=== PATIENT | female | born 1995 | race African-American/Black ===

== ENCOUNTER 2017-01-24 08:21 | Emergency (ER) | payer BC ==
[~2017-01-24] VITALS: Ht 170.2 cm; Wt 48.0 kg
[2017-01-24 09:57] LABS: CLARITY URINE CLEAR (CLEAR); COLOR URINE YELLOW (YELLOW); GLUCOSE URINE NEGATIVE (NEGATIVE); KETONES URINE NEGATIVE (NEGATIVE); LEUKOCYTE ESTERASE URINE NEGATIVE (NEGATIVE); NITRITE URINE NEGATIVE (NEGATIVE); OCCULT BLOOD URINE NEGATIVE (NEGATIVE); PROTEIN URINE TRACE (NEGATIVE); SPECIFIC GRAVITY URINE 1.029 (1.005-1.030)
[2017-01-24] MEDS ORDERED: ACETAMINOPHEN 500MG TABLET PO ONE (12:00)
[2017-01-24] MEDS ORDERED: ONDANSETRON 4MG ODT PO ONE (12:00)
[2017-01-24 12:35] VITALS: BP 114/69
== END 2017-01-24 12:38 | disposition home or self-care (01) ==
LOC: ER 08:29
DX: J06.9 Acute upper respiratory infection, unspecified (principal); N39.0 Urinary tract infection, site not specified; R11.2 Nausea with vomiting, unspecified
CPT/HCPCS: 81001; 81025; 87070; 87430; 99284; Q0162

== ENCOUNTER → 2017-06-06 | Outpatient (CLI) | payer BC ==
[2017-06-06 09:01] LABS: CLARITY URINE CLOUDY (CLEAR); COLOR URINE YELLOW (YELLOW); KETONES URINE NEGATIVE (NEGATIVE); LEUKOCYTE ESTERASE URINE 2+ (NEGATIVE); NITRITE URINE NEGATIVE (NEGATIVE); OCCULT BLOOD URINE NEGATIVE (NEGATIVE); PH URINE 5.5 (4.5-8.0); PROTEIN URINE NEGATIVE (NEGATIVE); SPECIFIC GRAVITY URINE 1.021 (1.005-1.030); UROBILINOGEN URINE 0.2 E.U./dL (0.2-1.0)
[2017-06-06 09:07] LABS: BASOPHILS % 0.3 % (0.0-2.0); EOSINOPHILS % 2.4 % (0.0-5.0); HEMATOCRIT. 40.5 % (36.0-48.0); HEMOGLOBIN. 13.4 g/dL (12.0-16.0); LYMPHOCYTES % 41.8 % (20.0-50.0); MEAN CORPUSCULAR HEMOGLOBIN 29.2 pg (28.0-32.0); MEAN CORPUSCULAR VOLUME 87.9 fL (81.0-99.0); MEAN PLATELET VOLUME 8.3 fl (7.4-10.4); MONOCYTES % 5.6 % (2.0-8.0); NEUTROPHILS % 49.9 % (40.0-76.0); PLATELET 263 x1000/uL (130-400); RED CELL DISTRIBUTION WIDTH 13.6 % (11.6-14.6)
[2017-06-06 09:22] LABS: CHLORIDE 104 mEq/L (98-107); HDL CHOLESTEROL 65 mg/dL (40-59); LDL CHOLESTEROL 90 mg/dL (5-100); TOTAL IRON BINDING CAPACITY 419 ug/dL (250-450)
[2017-06-06 09:39] LABS: FOLIC ACID (FOLATE) SERUM >20 ng/mL ng/mL (>5.38); VITAMIN B12 SERUM 377 pg/mL (211-911)
[2017-06-08 08:15] LABS: CHLAMYDIA TRACHOMATIS NAA Negative (Negative); NEISSERIA GONORRHOEAE NAA Negative (Negative)
== END | disposition home or self-care (01) ==
LOC: LAB 06:41
PROVIDERS: ATTEND Internal Medicine Geriatric Medicine
DX: Z00.01 Encounter for general adult medical examination with abnormal findings (principal); N39.0 Urinary tract infection, site not specified
CPT/HCPCS: 36415; 80053; 80061; 81001; 82306; 82607; 82746; 83540; 83550; 84443; 85025; 86592; 87086; 87491; 87591

== ENCOUNTER → 2018-05-10 | Outpatient (CLI) | payer BC ==
[2018-05-10 08:08] LABS: BASOPHILS % 0.3 % (0.0-2.0); EOSINOPHILS % 2.1 % (0.0-5.0); HEMATOCRIT. 37.7 % (36.0-48.0); HEMOGLOBIN. 12.4 g/dL (12.0-16.0); LYMPHOCYTES % 42.4 % (20.0-50.0); MEAN CORPUSCULAR HEMOGLOBIN 29.1 pg (28.0-32.0); MEAN CORPUSCULAR VOLUME 88.2 fL (81.0-99.0); MEAN PLATELET VOLUME 7.8 fl (7.4-10.4); MONOCYTES % 6.8 % (2.0-8.0); NEUTROPHILS % 48.4 % (40.0-76.0); PLATELET 221 x1000/uL (130-400); RED BLOOD CELL COUNT 4.27 mill/uL (4.2-5.4); RED CELL DISTRIBUTION WIDTH 13.5 % (11.6-14.6)
[2018-05-10 08:42] LABS: CHLORIDE 108 mEq/L (98-107)
[2018-05-10 08:52] LABS: HDL CHOLESTEROL 64 mg/dL (40-59)
[2018-05-10 08:55] LABS: LDL CHOLESTEROL 93 mg/dL (5-100)
[2018-05-10 08:56] LABS: TOTAL IRON BINDING CAPACITY 377 ug/dL (250-450)
[2018-05-10 09:49] LABS: VITAMIN B12 SERUM 254 pg/mL (211-911)
== END | disposition home or self-care (01) ==
LOC: US 06:19
PROVIDERS: ATTEND Internal Medicine Geriatric Medicine
DX: N63.11 Unspecified lump in the right breast, upper outer quadrant (principal); N39.0 Urinary tract infection, site not specified
CPT/HCPCS: 36415; 76642; 80061; 82306; 82607; 83540; 83550; 84443; 86592